=== PATIENT | female | born 1970 | race Caucasian/White ===

== ENCOUNTER 2019-08-31 19:51 | Observation (INO) ==
[2019-08-31 20:39] LABS: Basophils % 0.3 %; Eosinophils # 0.3 K/mcL (0.0-0.6); Eosinophils % 3.4 %; Hemoglobin 13.2 g/dL (11.5-15.4); Immature Granulocytes % 0.4 % (0-4); Lymphocytes # 2.9 K/mcL (0.6-4.6); Lymphocytes % 38.3 %; Mean Corpuscular HGB Conc 34.7 g/dL (31.6-35.5); Mean Corpuscular Hemoglobin 29.4 pg (28.0-33.3); Mean Corpuscular Volume 84.6 fL (83.0-100.0); Mean Platelet Volume 9.3 fL (9.4-12.4); Monocytes # 0.8 K/mcL (0.0-1.3); Monocytes % 10.6 %; Neutrophils # 3.5 K/mcL (1.6-8.9); Platelet Count 285 K/mcL (140-400); Red Blood Count 4.49 M/mcL (3.82-4.97); Red Cell Distribution Width 13.4 % (11.5-14.5); White Blood Count 7.5 K/mcL (4.3-11.1)
[2019-08-31 21:00] LABS: Alanine Aminotransferase 16 Units/L (7-52); Albumin 4.3 g/dL (3.5-5.7); Albumin/Globulin Ratio 1.5 (1.1-2.2); Alkaline Phosphatase 137 Units/L (34-104); Aspartate Amino Transferase 16 Units/L (13-39); BUN/Creatinine Ratio 11 (6-26); Bilirubin,Total 0.5 mg/dL (0.3-1.0); Blood Urea Nitrogen 8 mg/dL (6-20); Calcium 9.3 mg/dL (8.6-10.3); Carbon Dioxide 24 mEq/L (23-29); Chloride 105 mEq/L (98-107); Globulin 2.9 g/dL (2.4-3.5); Glucose 129 mg/dL (70-105); Osmolality,Calculated 288 (280-300); Potassium 3.7 mEq/L (3.5-5.1); Sodium 139 mEq/L (136-145); Total Protein 7.2 g/dL (6.4-8.9); Troponin I < 0.03 ng/mL (< 0.04); eGFR For African Americans > 60 (> 60); eGFR For Non-African Americans > 60 (> 60)
[2019-08-31] MEDS ORDERED: Isovue-370 500 ML BOTTLE IVP ONE (22:24)
[2019-08-31] MEDS ORDERED: Naloxone 0.4 MG/ML INJ IVP PRN (23:33)
[2019-08-31] MEDS ORDERED: cefTRIAXone 1,000 MG in Water for inj. (sterile) 10 ML IVP SCH (23:45)
[2019-08-31] MEDS ORDERED: Ringers Solution, Lactated 1,000 ML IVC SCH (23:45)
[2019-09-01 00:37] LABS: ABG Base Excess 2 mEq/L (-2 to 3); ABG HCO3 24 mEq/L (21-27); ABG Oxygen Saturation 98 % (95-98); ABG PCO2 31 mmHg (35-45); ABG PH 7.51 pH Units (7.32-7.45); ABG PO2 98 mmHg (85-104); ABG TCO2 25 mEq/L (20-26)
[2019-09-01 00:52] LABS: Clarity,Urine Clear (Clear); Color,Urine Yellow (Yellow)
[2019-09-01 00:53] LABS: Bilirubin,Urine Negative (Negative); Blood,Urine Negative (Negative); Glucose,Urine (UA) Normal (Normal); Ketones,Urine Negative (Negative); Leukocyte Esterase,Urine Negative (Negative); Nitrite,Urine Negative (Negative); PH,Urine 6.5 pH Units (5.0-8.0); Protein,Urine Negative (Neg-Trace); Specific Gravity,Urine 1.005 (1.010-1.025); Urobilinogen,Urine Normal (Normal)
[2019-09-01 01:21] LABS: Basophils % 0.3 %; Eosinophils # 0.1 K/mcL (0.0-0.6); Eosinophils % 1.9 %; Hematocrit 37.1 % (35.3-44.9); Hemoglobin 12.9 g/dL (11.5-15.4); Immature Granulocytes % 0.3 % (0-4); Lymphocytes # 2.6 K/mcL (0.6-4.6); Lymphocytes % 35.2 %; Mean Corpuscular HGB Conc 34.8 g/dL (31.6-35.5); Mean Corpuscular Hemoglobin 29.1 pg (28.0-33.3); Mean Corpuscular Volume 83.7 fL (83.0-100.0); Mean Platelet Volume 9.3 fL (9.4-12.4); Monocytes # 0.7 K/mcL (0.0-1.3); Monocytes % 9.9 %; Neutrophils # 3.9 K/mcL (1.6-8.9); Platelet Count 286 K/mcL (140-400); Red Blood Count 4.43 M/mcL (3.82-4.97); Red Cell Distribution Width 13.3 % (11.5-14.5); Segmented Neutrophils % 52.4 %; White Blood Count 7.4 K/mcL (4.3-11.1)
[2019-09-01 01:30] LABS: Prothrombin Time 11.1 Seconds (9.4-12.1)
[2019-09-01 01:31] LABS: Alanine Aminotransferase 14 Units/L (7-52); Albumin 4.1 g/dL (3.5-5.7); Albumin/Globulin Ratio 1.5 (1.1-2.2); Alkaline Phosphatase 123 Units/L (34-104); Aspartate Amino Transferase 14 Units/L (13-39); BUN/Creatinine Ratio 11 (6-26); Bilirubin,Total 0.5 mg/dL (0.3-1.0); Blood Urea Nitrogen 7 mg/dL (6-20); Calcium 8.9 mg/dL (8.6-10.3); Carbon Dioxide 24 mEq/L (23-29); Chloride 108 mEq/L (98-107); Chol/HDL Ratio 3.3 (0-4.9); Cholesterol 164 mg/dL (< 200); Globulin 2.8 g/dL (2.4-3.5); Glucose 120 mg/dL (70-105); HDL Cholesterol 49 mg/dL (40-59); LDL Cholesterol,Calculated 93 mg/dL (0-99); Magnesium 2.3 mg/dL (1.6-2.6); Osmolality,Calculated 285 (280-300); Phosphorous 3.3 mg/dL (2.7-4.5); Potassium 3.6 mEq/L (3.5-5.1); Sodium 138 mEq/L (136-145); Total Protein 6.9 g/dL (6.4-8.9); Triglycerides 112 mg/dL (< 150); eGFR For African Americans > 60 (> 60); eGFR For Non-African Americans > 60 (> 60)
[2019-09-01 01:33] LABS: Activated Partial Thrombo Time 30.9 Seconds (26.0-36.0)
[2019-09-01] MEDS ORDERED: Nitroglycerin 0.4 MG TAB.SUBL SL PRN (04:38)
[2019-09-01] MEDS ORDERED: Budesonide/Formoterol 160/4.5 1 PUFF INH IH PRN (04:38)
[2019-09-01] MEDS ORDERED: Nicotine 2 MG GUM BC PRN (04:38)
[2019-09-01] MEDS ORDERED: Tiotropium 18 MCG inhalation IH PRN (04:38)
[2019-09-01] MEDS: *HR* Heparin 5,000 UNIT/ML VIAL SQ SCH ×2 (06:06→14:46)
[2019-09-01] MEDS ORDERED: Nicotine 14 MG PATCH.TD24 TD SCH (09:00)
[2019-09-01] MEDS ORDERED: Loratadine 10 MG TABLET PO SCH (09:00)
[2019-09-01] MEDS ORDERED: predniSONE 20 MG TABLET PO SCH (09:00)
[2019-09-01] MEDS ORDERED: Aspirin 81 MG TAB.CHEW PO SCH (09:00)
[2019-09-01 09:38] LABS: Estimated Average Glucose 154 mg/dl
[2019-09-01 12:18] VITALS: BP 96/52
[2019-09-01] MEDS ORDERED: Mirtazapine 15 MG TABLET PO SCH (21:00)
[2019-09-01] MEDS ORDERED: MethylPREDNISolone 40 MG/ML VIAL IVP ONE (23:37)
== END 2019-09-01 15:32 | disposition home or self-care (01) ==
LOC: 3BNU 19:51 → EMEROOARM 19:51 → 3BNU 09-01 01:36
PROVIDERS: ADMIT Family Medicine; ATTEND Family Medicine

== ENCOUNTER 2020-03-27 06:40 | Inpatient (IN) ==
[2020-03-27] MEDS ORDERED: Famotidine 20 MG/2 ML VIAL IVP ONE (07:00)
[2020-03-27] MEDS ORDERED: Ondansetron 4 MG/2 ML VIAL IVP PRN ×2 (07:01→11:32)
[2020-03-27] MEDS ORDERED: *HR* Labetalol 20 MG/4 ML SYRINGE IVP PRN (07:01)
[2020-03-27] MEDS ORDERED: Scopolamine Patch 1.5 MG PATCH.TD72 TD ONE (07:05)
[2020-03-27] MEDS ORDERED: CeFAZolin Syr 2,000MG/20 ML 2,000 MG/20 ML SYRINGE IVPB ONE (07:07)
[2020-03-27] MEDS ORDERED: Ringers Solution, Lactated 1,000 ML IVC SCH ×2 (07:15→11:32)
[2020-03-27] MEDS ORDERED: *HR* FentaNYL (PF) 100 MCG/2 ML VIAL ONE (07:22)
[2020-03-27] MEDS ORDERED: *HR* Propofol 200 MG/20 ML VIAL IVP ONE (07:23)
[2020-03-27] MEDS ORDERED: *HR* Midazolam HCl 2 MG/2 ML VIAL ONE (07:23)
[2020-03-27] MEDS ORDERED: Ondansetron 4 MG/2 ML VIAL ONE (07:24)
[2020-03-27] MEDS ORDERED: Dexamethasone 4 MG/ML VIAL ONE (07:24)
[2020-03-27] MEDS ORDERED: *HR* Succinylcholine 200 MG/10 ML VIAL IVP ONE (07:24)
[2020-03-27] MEDS ORDERED: Lidocaine -MPF 2% 2 ML VIAL ONE (07:24)
[2020-03-27] MEDS ORDERED: Lidocaine HCL 4 ML Topical Solution (Laryng-O-Jet Kit Sterile Pak) TP ONE (07:53)
[2020-03-27] MEDS ORDERED: Ethanol\\Acetic Acid\\Na Ace\\Ben 1,000 ML IRRIG.SOLN IR ONE (07:59)
[2020-03-27] MEDS ORDERED: *HR* PHENYLEPHRINE 1,000 MCG/10 ML SYRINGE IVP ONE (08:57)
[2020-03-27] MEDS: *HR* HYDROmorphone (PF) 1 MG/ML SYRINGE IVP PRN ×2 (10:20→10:41)
[2020-03-27 10:39] LABS: Hematocrit 37.4 % (35.3-44.9)
[2020-03-27 10:41] LABS: Hemoglobin 12.2 g/dL (11.5-15.4)
[2020-03-27] MEDS ORDERED: *HR* OxyCODONE/APAP 5/325 TABLET PO PRN (11:32)
[2020-03-27] MEDS ORDERED: Nitroglycerin 0.4 MG TAB.SUBL SL PRN (11:32)
[2020-03-27] MEDS ORDERED: Sennosides 8.6 MG TABLET PO PRN (11:32)
[2020-03-27] MEDS ORDERED: *HR* OxyCODONE Immed Rel 5 MG TABLET PO PRN (11:32)
[2020-03-27] MEDS ORDERED: ATROVENT IH SCH (11:32)
[2020-03-27] MEDS ORDERED: Loratadine 10 MG TABLET PO SCH (11:32)
[2020-03-27] MEDS ORDERED: Aspirin 81 MG TAB.CHEW PO SCH (11:32)
[2020-03-27] MEDS ORDERED: predniSONE 20 MG TABLET PO SCH (11:32)
[2020-03-27] MEDS ORDERED: MOM Conc 10 ML UD.LIQ PO PRN (11:32)
[2020-03-27] MEDS ORDERED: *HR* Enoxaparin 30 MG/0.3 ML SYRINGE SQ SCH ×3 (13:23→18:00)
[2020-03-27] MEDS ORDERED: ceFAZolin 2,000 MG in 0.9 % Sodium Chloride 100 ML IVPB SCH ×2 (13:30→16:00)
[2020-03-27 14:51] VITALS: BP 96/52
[2020-03-27] MEDS ORDERED: Ibuprofen 400 MG TABLET PO SCH (17:00)
[2020-03-27] MEDS ORDERED: Mirtazapine 15 MG TABLET PO SCH (21:00)
[2020-03-27] MEDS ORDERED: Ipratropium 1 PUFF INHALER IH SCH (22:00)
[2020-03-27] MEDS ORDERED: Budesonide/Formoterol 160/4.5 1 PUFF INH IH SCH (22:00)
== END 2020-03-27 16:50 | disposition home or self-care (01) | DRG 322 ==
LOC: SAMDAY 06:40 → 3NENU 11:30
PROVIDERS: ADMIT Orthopaedic Surgery; ATTEND Orthopaedic Surgery